=== PATIENT | female | born 1955 | race Caucasian/White ===

== ENCOUNTER → 2017-01-25 14:34 | Outpatient (CLI) | payer BC ==
[2014-05-28 10:56] VITALS: BMI 27.0
[~2017-01-25 14:34] MED LIST: AGGRENOX 200/251 CAP PO; AMBIEN5 MG PO; CELEXA20 MG PO; HYDROCHLOROTH12.5 M1 PO; MEDROL DOSE PACK4 MG PO; MUCINEX600 MG PO; NASONEX NASAL S17 GM NS; NORVASC5 MG PO; OMNICEF300 MG PO; ULTRAM50 MG PO; ZESTRIL40 MG PO
== END | disposition home or self-care (01) ==
LOC: D.MAMMO 01-22 15:15
DX: Z12.31 Encounter for screening mammogram for malignant neoplasm of breast (principal)

== ENCOUNTER 2017-03-18 10:43 | Inpatient (IN) | payer BC ==
[~2017-03-18] VITALS: Ht 161.3 cm; Wt 83.7 kg
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
[2017-03-18 11:03] LABS: BASOPHILS 0.4 % (0-2); EOSINOPHILS 3.2 % (0-7); HEMATOCRIT 44.8 % (36.0-48.0); HEMOGLOBIN 14.7 g/dL (12-16); IMMATURE GRANULOCYTES 0.5 % (0-5); MCH 31.3 pg (26.0-34.0); MCHC 32.8 g/dL (31.0-37.0); MCV 95.3 fL (80.0-100.0); MEAN PLATELET VOLUME 9.9 fL (7.4-10.4); MONOCYTES 6.3 % (2-11); NEUTROPHILS 56.6 % (40-80); RDW 12.9 % (11.5-14.5); WBC 13.3 10x3/uL (4.8-10.8)
[2017-03-18 11:12] LABS: PLATELET COUNT 408 10x3/uL (130-400)
[2017-03-18 11:15] LABS: ALBUMIN 4.3 g/dL (3.4-5.0); ANION GAP 19.1 mmol/L (8-16); BILIRUBIN - TOTAL 0.3 mg/dL (0.2-1.3); CALCIUM 10.6 mg/dL (8.5-10.1); CARBON DIOXIDE 20.8 mmol/L (21.0-32.0); POTASSIUM - SERUM 3.9 mmol/L (3.5-5.1); PROTEIN - SERUM 8.2 g/dL (6.4-8.2)
--- NOTE | 2017-03-18 16:07 | NUR ---
RECEIVED TO ROOM 2233 FROM ED VIA .
--- NOTE | 2017-03-18 16:13 | NUR ---
OFF FLOOR TO MRI VIA .
[2017-03-18] MEDS ORDERED: NORCO 7.5/325 T1 TA1 PO (16:58)
[2017-03-18] MEDS ORDERED: NEURONTIN 300300 MG PO (16:59)
[2017-03-18] MEDS ORDERED: SKELAXIN800 MG PO (17:00)
--- NOTE | 2017-03-18 17:00 | NUR ---
RETURNED TO ROOM FROM MRI VIA KARINA. TAYLOR TO Sana NEWMANS. FAMILY AT BEDSIDE.
[2017-03-18] MEDS ORDERED: VITAMIN D2000 UNIT PO (17:02)
[2017-03-18 17:07] VITALS: BP 124/80; Ht 161.3 cm; Wt 83.7 kg
--- NOTE | 2017-03-18 19:15 | NUR ---
BEDSIDE REPORT RECEIVED AND CARE OF PT ASSUMED. PT SITTING UP IN BED VISITING WITH FAMILY MEMBERS. IV IN LEFT FA SALINE LOCKED. TELEMETRY IN PLACE AND READING 74 SR AT THIS ASSESSEMENT. WILL MONITOR CLOSEY FOR NEEDS.
[2017-03-18 19:28] LABS: ERYTHROCYTE SEDIMENTATION RATE 10 mm/hr (0-30)
[2017-03-18 20:00] VITALS: BP 102/56
--- NOTE | 2017-03-18 21:40 | NUR ---
HS MEDICATIONS GIVEN. WILL CONTINUE TO MONITOR FOR NEEDS.
--- NOTE | 2017-03-18 23:54 | NUR ---
PT SLEEPING IN SUPINE POSITION WITH UNLABORED BREATHING. SIDE RAILS UP X2 FOR SAFETY.
[2017-03-19 04:00] VITALS: BP 98/44
[2017-03-19 05:56] LABS: BASOPHILS 0.7 % (0-2); EOSINOPHILS 4.7 % (0-7); HEMATOCRIT 38.5 % (36.0-48.0); HEMOGLOBIN 12.4 g/dL (12-16); IMMATURE GRANULOCYTES 0.6 % (0-5); LYMPHOCYTES 31.6 % (15-50); MCH 31.4 pg (26.0-34.0); MCHC 32.2 g/dL (31.0-37.0); MEAN PLATELET VOLUME 10.3 fL (7.4-10.4); NEUTROPHILS 53.4 % (40-80); PLATELET COUNT 342 10x3/uL (130-400); RBC 3.95 10x6/uL (4.00-5.40); RDW 13.2 % (11.5-14.5)
[2017-03-19 05:59] LABS: MCV 97.5 fL (80.0-100.0)
[2017-03-19 06:20] LABS: ANION GAP 15.2 mmol/L (8-16); CALCIUM 9.8 mg/dL (8.5-10.1); CARBON DIOXIDE 23.6 mmol/L (21.0-32.0); CREATININE - SERUM 0.9 mg/dL (0.6-1.3); POTASSIUM - SERUM 3.8 mmol/L (3.5-5.1)
--- NOTE | 2017-03-19 07:45 | NUR ---
PATIENT RESTING IN THE BED. PATIENT IS AWAKE, ALERT, AND ORIENTED X4. PATIENT RATES HER PAIN LEVEL A "7" 0N A 0-10 SCALE. PATIENT COMPLAINS OF ACHING PAIN IN HER HEAD. ASSESSMENT COMPLETED. SEE FLOWSHEET FOR DETAILS. TELEMETRY IN PLACE AND SHOWING NORMAL SINUS RHYTHM WITH A RATE OF 70. PATIENT DENIES ANY NEEDS AT PRESENT TIME.. CALL LIGHT IN PATIENT'S REACH. WILL MONITOR.
[2017-03-19 08:16] VITALS: BP 107/49
--- NOTE | 2017-03-19 09:03 | NUR ---
SALINE LOCK DC'D WITH CATHETER TIP STILL INTACT. 2X2 GAUZE AND BANDAID APPLIED. PATIENT TOLERATED WELL. PATIENT TO BE DISCHARGED HOME TODAY. PATIENT CALLED HER .
--- NOTE | 2017-03-19 09:13 | NUR ---
DISCHARGE INSTRUCTIONS VERBALIZED TO PATIENT. PATIENT VERBALIZED UNDERSTANDING AND SIGNED DISCHARGE SHEETS.
== END 2017-03-19 09:31 | disposition home or self-care (01) | DRG 305 ==
LOC: D.ER 10:43 → D.MS 13:59
PROVIDERS: Emergency Medicine; ADMIT Family Medicine
DX: I16.0 Hypertensive urgency (principal); R27.0 Ataxia, unspecified; R47.1 Dysarthria and anarthria; E78.5 Hyperlipidemia, unspecified; G89.29 Other chronic pain; M54.5 Low back pain; F17.200 Nicotine dependence, unspecified, uncomplicated

== ENCOUNTER → 2018-01-24 12:47 | Outpatient (CLI) | payer BC ==
[2017-03-18 17:07] VITALS: BMI 32.2
[~2018-01-24 12:47] MED LIST changes: +NEURONTIN 300300 MG PO; +NORCO 7.5/325 T1 TA1 PO; +SKELAXIN800 MG PO; +VITAMIN D2000 UNIT PO
== END | disposition home or self-care (01) ==
LOC: D.MAMMO 12:47
DX: Z12.31 Encounter for screening mammogram for malignant neoplasm of breast (principal)

== ENCOUNTER 2018-05-26 13:46 | Emergency (ER) | payer BC ==
[~2018-05-26] VITALS: Ht 161.3 cm; Wt 77.3 kg
[2018-05-26 13:54] VITALS: Ht 161.3 cm; Wt 77.3 kg
[2018-05-26 14:32] LABS: BASOPHILS 0.4 % (0-2); EOSINOPHILS 2.3 % (0-7); HEMATOCRIT 44.1 % (36.0-48.0); IMMATURE GRANULOCYTES 0.5 % (0-5); LYMPHOCYTES 23.2 % (15-50); MCH 32.3 pg (26.0-34.0); MCV 94.8 fL (80.0-100.0); MEAN PLATELET VOLUME 9.7 fL (7.4-10.4); MONOCYTES 8.2 % (2-11); NEUTROPHILS 65.4 % (40-80); PLATELET COUNT 380 10x3/uL (130-400); RBC 4.65 10x6/uL (4.00-5.40); RDW 13.5 % (11.5-14.5); WBC 13.9 10x3/uL (4.8-10.8)
[2018-05-26 14:41] LABS: INR 0.93 (0.85-1.17); PROTIME 12.1 SECONDS (11.6-15.0)
[2018-05-26 14:42] LABS: APTT 30.9 SECONDS (22.8-39.4)
[2018-05-26 14:43] LABS: D-DIMER-QUANTITATIVE 0.36 ug/mLFEU (0.20-0.54)
[2018-05-26 15:13] LABS: ALBUMIN 3.8 g/dL (3.4-5.0); ALKALINE PHOSPHATASE 173 U/L (46-116); ALT (SGPT) 27 U/L (10-68); BILIRUBIN - TOTAL 0.28 mg/dL (0.2-1.3); CALC OSMOLALITY 277 mosm/kg (275-300); CALCIUM 9.8 mg/dL (8.5-10.1); CARBON DIOXIDE 24.3 mmol/L (21.0-32.0); CHLORIDE - SERUM 105 mmol/L (98-107); CREATININE - SERUM 0.8 mg/dL (0.6-1.3); GLUCOSE 102 mg/dL (74-106); POTASSIUM - SERUM 3.9 mmol/L (3.5-5.1); PROTEIN - SERUM 8.1 g/dL (6.4-8.2); SODIUM 140 mmol/L (136-145); UREA NITROGEN 9 mg/dL (7-18); eGFR NON AFRICAN AMERICAN 77 mL/min (90-120)
[2018-05-26 15:27] LABS: CREATINE KINASE 48 UL (21-215); MAGNESIUM - SERUM 2.4 mg/dL (1.8-2.4); THYROID STIMULATING HORMONE 0.77 uIU/mL (0.36-3.74); TROPONIN-I < 0.017 ng/mL (0.000-0.060)
[2018-05-26 18:35] VITALS: BP 129/81
== END 2018-05-26 19:37 | disposition other institution (70) ==
LOC: D.ER 13:46
PROVIDERS: Family Medicine
DX: G45.9 Transient cerebral ischemic attack, unspecified (principal); R51 Headache; R53.1 Weakness; I10 Essential (primary) hypertension; R47.9 Unspecified speech disturbances; R42 Dizziness and giddiness; G89.29 Other chronic pain; F17.200 Nicotine dependence, unspecified, uncomplicated; R20.2 Paresthesia of skin